=== PATIENT | male | born 1955 | race Caucasian/White ===

== ENCOUNTER 2017-06-09 16:29 | Emergency (ER) | payer MEDICAID ==
--- NOTE | 2017-06-09 18:54 | ED Physician Documentation ---
PD HPI NECK PAIN - Stated complaint Stated Complaint: VISION/NECK/COLD HANDS - Chief complaint Chief Complaint: Neuro - History obtained from History obtained from: Patient - History of Present Illness Timing - onset: How many weeks ago (few weeks of intermittent feeling of tingling/numbness in both hands at different times. Has had ongoing neck pain with ROM that is a little worse than baseline. No rash nor sores. 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 Does not get discolored hands, but just feel cool and numb. Does increase with use.) Timing - duration: Weeks Timing - details: Intermittant Location: Mid Quality: Other (numb feeling). No: Pain, Spasm Worsened by: Movement Contributing factors: No: Lifting, Twisting, Trauma Similar symptoms before: Diagnosis (neck pinched nerve) Recently seen: Not recently seen Review of Systems Constitutional: denies: Fever, Chills Skin: denies: Rash, Lesions Musculoskeletal: reports: Neck pain (chronic, recently worse). denies: Back pain Neurologic: reports: Numbness. denies: Focal weakness, Difficulty speaking, Altered mental status, Headache PD PAST MEDICAL HISTORY - Past Medical History Cardiovascular: Hypertension - Past Surgical History Past Surgical History: Yes General: Appendectomy Ortho: Other - Present Medications Home Medications: Ambulatory Orders Medication Instructions Recorded Confirmed Dexamethasone [Decadron] 4 mg PO DAILY #5 tablet 06/09/17 Methocarbamol [Robaxin] 500 mg PO Q6H PRN #25 tablet 06/09/17 Tramadol HCl 50 mg PO Q6H PRN #25 tablet 06/09/17 - Allergies Allergies/Adverse Reactions: Allergies Allergy/AdvReac Type Severity Reaction Status Date / Time No Known Drug Allergies Allergy Verified 06/09/17 16:47 - Social History Does the pt smoke?: Yes Smoking Status: Current every day smoker Does the pt drink ETOH?: Yes Does the pt have substance abuse?: Yes - Immunizations Immunizations are current?: Yes PD ED PE NORMAL - Vitals Vital signs reviewed: Yes - General General: Alert and oriented X 3, No acute distress, Well developed/nourished - HEENT HEENT: Pharynx benign - Neck Neck: Supple, no meningeal sign, No bony TTP, No adenopathy, Thyroid normal, No JVD, No bruit - Cardiac Cardiac: RRR, No murmur - Respiratory Respiratory: Clear bilaterally - Abdomen Abdomen: Soft, Non tender - Derm Derm: Normal color, Warm and dry - Extremities Extremities: Other (good pulses and cap refill in both hands/wrists. Negative TInnels at wrists. ) - Neuro Neuro: Alert and oriented X 3, No motor deficit, No sensory deficit, Normal speech Results - Vitals Vitals: Oxygen O2 Source Room air - Labs Labs: Laboratory Tests 06/09/17 06/09/17 06/09/17 19:24 19:24 19:24 WBC 9.5 RBC 5.20 Hgb 16.1 Hct 49.2 MCV 94.7 H MCH 31.0 MCHC 32.7 RDW 14.7 Plt Count 171 MPV 8.7 Neut # 6.6 Lymph # 2.0 Dare # 0.6 Eos # 0.2 Baso # 0.1 Absolute Nucleated RBC 0.00 Nucleated RBC % 0.0 ESR 1 Sodium 136 Potassium 3.8 Chloride 103 Carbon Dioxide 25 Anion Gap 8.0 BUN 12 Creatinine 0.6 Estimated GFR (MDRD) 137 Glucose 95 Calcium 8.9 Magnesium 1.9 Total Bilirubin 0.5 AST 21 ALT 18 Alkaline Phosphatase 78 Total Protein 7.0 Albumin 4.1 Globulin 2.9 Albumin/Globulin Ratio 1.4 Lipase 26 PD MEDICAL DECISION MAKING - ED course Complexity details: considered differential (has some neck pain and arms intermittently numb. Consider cervical radiculitis. But the pattern of his numbness is diffuse hands distal to wrists and not in strip up arm. He has negative Tinnels, but I still wonder if his hand numbness is more carpal tunnel like. Can try wrist splint on right wrist (the worse one) and see if it improves over the next week or so. He has good color and cap refill, pulses in wrists and fingers, so does not seem vascular, though he does have clubbing of nails suggesting COPD/ snf lung problem. ), d/w patient Departure - Departure Disposition: 01 Home, Self Care Clinical Impression: Bilateral hand numbness, Neck pain, Blurred vision, bilateral Condition: Stable Record reviewed to determine appropriate education?: Yes Instructions: ED Cervical Radiculopathy, ED Paraesthesias Follow-Up: [facility] [Provider Group] [facility]] Prescriptions: Dexamethasone [Decadron] 4 mg PO DAILY #5 tablet Methocarbamol [Robaxin] 500 mg PO Q6H PRN #25 tablet PRN Reason: Spasms Tramadol HCl 50 mg PO Q6H PRN #25 tablet PRN Reason: Pain Comments: Regarding the blurred vision, I would check with an manufacturing worker or polysomnographer initially to see if they think it is the eyes themselves. I think it is more likely to be eye pressure or refractive rather than from the neck or head. The hand numbness might be from the wrist being inflamed. Try the wrist splint on the right wrist during work and sleep for the next week or so and see if it makes it better. It may also be coming from the pinched nerve in the neck and you are having the neck pain anyway so use the Decadron for inflammation and Robaxin for muscle spasms and stiffness and add Tylenol or hydrocodone if needed for pains. Obtain a local primary care for follow-up. I give couple of clinic names as possibilities. Discharge Date/Time: 06/09/17 21:01
[2017-06-09] MEDS ORDERED: traMADol 50 MG TABLET PO STA (19:13)
[2017-06-09] MEDS ORDERED: DEXAMETHASONE 10 MG/ML VIAL PO STA (19:13)
[2017-06-09] MEDS ORDERED: CHERRY SYRUP 10 ML UDC PO ONE (19:30)
[2017-06-09 19:31] LABS: BASOPHILS # (AUTO) 0.1 10^3/uL (0.0-0.1); BASOPHILS % (AUTO) 0.7 %; EOSINOPHILS # (AUTO) 0.2 10^3/uL (0.0-0.7); EOSINOPHILS % (AUTO) 2.5 %; HGB - HEMOGLOBIN 16.1 g/dL (14.0-18.0); MEAN CORPUSCULAR HGB CONC 32.7 g/dL (32.0-36.0); MEAN CORPUSCULAR VOLUME 94.7 fL (80.0-94.0); MEAN PLATELET VOLUME 8.7 fL (7.4-11.4); MONOCYTES # (AUTO) 0.6 10^3/uL (0.0-1.0); MONOCYTES % (AUTO) 6.8 %; NEUTROPHILS # (AUTO) 6.6 10^3/uL (1.5-6.6); PLT - PLATELET COUNT 171 10^3/uL (130-450); RED CELL DISTRIBUTION WIDTH 14.7 % (12.0-15.0); WHITE BLOOD COUNT 9.5 x10^3/uL (4.8-10.8)
[2017-06-09 19:44] LABS: ALBUMIN 4.1 g/dL (3.2-5.5); ALBUMIN/GLOBULIN RATIO 1.4 (1.0-2.2); BILIRUBIN,TOTAL 0.5 mg/dL (0.2-1.0); CALCIUM 8.9 mg/dL (8.5-10.3); CREATININE 0.6 mg/dL (0.6-1.2); MAGNESIUM 1.9 mg/dL (1.7-2.8)
[2017-06-09 20:58] VITALS: BP 145/92
== END 2017-06-09 21:01 | disposition home or self-care (01) ==
LOC: ED 16:29
DX: R20.0 Anesthesia of skin (principal); M54.2 Cervicalgia; H53.8 Other visual disturbances; I10 Essential (primary) hypertension; F17.200 Nicotine dependence, unspecified, uncomplicated
CPT/HCPCS: 36415; 80053; 83690; 83735; 85025; 85651; 99283; A9270

== ENCOUNTER 2018-02-09 19:57 | Emergency (ER) | payer MEDICAID ==
[2018-02-09 20:05] VITALS: BP 149/93
--- NOTE | 2018-02-09 20:20 | ED Physician Documentation ---
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 He has some soa but no fever or chills. Review of Systems Constitutional: reports: Fatigue. denies: Fever, Chills Eyes: denies: Decreased vision Ears: denies: Ear pain Nose: reports: Rhinorrhea / runny nose (resolved), Congestion (resolved) Throat: denies: Sore throat Cardiac: reports: Chest pain / pressure. denies: Palpitations, Pedal edema, Calf pain Respiratory: reports: Dyspnea, Cough GI: denies: Abdominal Pain, Nausea, Vomiting : denies: Dysuria, Frequency Skin: denies: Rash Musculoskeletal: denies: Neck pain, Back pain, Extremity pain PD PAST MEDICAL HISTORY - Past Medical History Cardiovascular: Hypertension - Past Surgical History Past Surgical History: Yes General: Appendectomy Ortho: Other - Present Medications Home Medications: Ambulatory Orders Medication Instructions Recorded Confirmed Dexamethasone [Decadron] 4 mg PO DAILY #5 tablet 06/09/17 Methocarbamol [Robaxin] 500 mg PO Q6H PRN #25 tablet 06/09/17 Tramadol HCl 50 mg PO Q6H PRN #25 tablet 06/09/17 Azithromycin [Zithromax] 250 mg PO DAILY #6 tablet 02/09/18 - Allergies Allergies/Adverse Reactions: Allergies Allergy/AdvReac Type Severity Reaction Status Date / Time No Known Drug Allergies Allergy Verified 02/09/18 20:05 - Social History Does the pt smoke?: Yes Smoking Status: Current every day smoker Does the pt drink ETOH?: Yes Does the pt have substance abuse?: Yes - Immunizations Immunizations are current?: Yes PD ED PE NORMAL - Vitals Vital signs reviewed: Yes (hypertensive) - General General: Alert and oriented X 3, Well developed/nourished - HEENT HEENT: Atraumatic, PERRL, EOMI, Ears normal, Other (dry mucous membranes ) - Neck Neck: Supple, no meningeal sign, No bony TTP - Cardiac Cardiac: RRR, No murmur - Respiratory Respiratory: No respiratory distress, Other (low pitched rhonchi in right base ) - Abdomen Abdomen: Soft, Non tender - Back Back: No CVA TTP, No spinal TTP - Derm Derm: Normal color, Warm and dry, No rash - Extremities Extremities: No deformity, No edema - Neuro Neuro: Alert and oriented X 3, 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 On lateral view increased parenchymal density either in the right middle lobe, lingula not well seen on frontal view. 2 COPD), EMP read indepedently, See rad report PD MEDICAL DECISION MAKING - ED course Complexity details: reviewed old records, reviewed results, re-evaluated patient, considered differential, d/w patient ED course: 62 y/o male with cough and right sided chest pain has rhonchi and infiltrate in the right base. He is administered Rocephin 1gm IM and we will place him on some zithromax for community acquired pneumonia. The patient has pleuritic type chest pain and he is administered dexamethasone 10 mg orally for this indication. Departure - Departure Disposition: 01 Home, Self Care Clinical Impression: Pneumonia Qualifiers: Pneumonia type: due to unspecified organism Laterality: right Lung location: lower lobe of lung Qualified Code(s): J18.1 - Lobar pneumonia, unspecified organism Condition: Stable Instructions: ED Pneumonia Adult Follow-Up: Buzz Laurent MD [Primary Care Provider] - Prescriptions: Azithromycin [Zithromax] 250 mg PO DAILY #6 tablet
[2018-02-09] MEDS ORDERED: cefTRIAXone 1 GM VIAL IM STA (20:33)
[2018-02-09] MEDS ORDERED: LIDOCAINE 1% 2 ML VIAL SUBQ ONE (20:33)
--- NOTE | 2018-02-09 20:47 | XRAY Report ---
Reason: rhonchi right base/pain cough Procedure Date: 02/09/2018 Accession Number: [id number] / [id number] Procedure: XR - Chest 2 View X-Ray CPT Code: 93609 FULL RESULT: EXAM: CHEST RADIOGRAPHY EXAM DATE: 02/09/2018 08:29 PM. CLINICAL HISTORY: Rhonchi right base/pain cough. COMPARISON: None. TECHNIQUE: 2 views. FINDINGS: Lungs/Pleura: Lateral view there appears to be increased parenchymal density in either right middle lobe or lingula projected over heart No pleural effusion. No pneumothorax. Hyperlucent, hyperinflated with flattened hemidiaphragms. Biapical pleural thickening. Right apical scarring. Mediastinum: Heart and mediastinal contours are unremarkable. Other: None. IMPRESSION: 1. On lateral view increased parenchymal density either in right middle lobe, lingula not well seen on frontal view. 2. COPD RADIA
[2018-02-09] MEDS ORDERED: DEXAMETHASONE 10 MG/ML VIAL PO STA (20:50)
== END 2018-02-09 21:00 | disposition home or self-care (01) ==
LOC: ED 19:57
DX: J18.1 Lobar pneumonia, unspecified organism (principal); I10 Essential (primary) hypertension; F17.200 Nicotine dependence, unspecified, uncomplicated
CPT/HCPCS: 71046; 96372; 99283; 99284

== ENCOUNTER 2018-02-10 09:28 | Emergency (ER) | payer MEDICAID ==
[2018-02-10 09:33] VITALS: BP 153/85
[2018-02-10] MEDS ORDERED: AZITHROMYCIN 250 MG TABLET PO STA (09:41)
[2018-02-10] MEDS ORDERED: LIDOCAINE PATCH 5% TOP STA (09:41)
--- NOTE | 2018-02-10 09:44 | ED Physician Documentation ---
History of Present Illness - Stated complaint Stated Complaint: MED REFILL - Chief complaint Chief Complaint: General - Additonal information Additional information: hx from pt and EMR 62 male seen yesterday for cough and R sided CP dx CAP txed with zmax only pharmacy open today () is [facility] and they do not take his insurance so back to ER for a dose of zmax for today and tomorrow he can go to his usual pharmacy Review of Systems Constitutional: denies: Fever Cardiac: reports: Chest pain / pressure Respiratory: reports: Dyspnea, Cough Musculoskeletal: denies: Extremity swelling PD PAST MEDICAL HISTORY - Past Medical History Past Medical History: Yes Cardiovascular: Hypertension Respiratory: Pneumonia - Past Surgical History Past Surgical History: Yes General: Appendectomy Ortho: Other - Present Medications Home Medications: Ambulatory Orders Medication Instructions Recorded Confirmed Dexamethasone [Decadron] 4 mg PO DAILY #5 tablet 06/09/17 Methocarbamol [Robaxin] 500 mg PO Q6H PRN #25 tablet 06/09/17 Tramadol HCl 50 mg PO Q6H PRN #25 tablet 06/09/17 Azithromycin [Zithromax] 250 mg PO DAILY #6 tablet 02/09/18 - Allergies Allergies/Adverse Reactions: Allergies Allergy/AdvReac Type Severity Reaction Status Date / Time No Known Drug Allergies Allergy Verified 02/10/18 09:33 - Social History Does the pt smoke?: Yes Smoking Status: Current every day smoker Does the pt drink ETOH?: Yes Does the pt have substance abuse?: Yes - Immunizations Immunizations are current?: Yes PD ED PE NORMAL - Vitals Vital signs reviewed: Yes - Cardiac Cardiac: RRR - Respiratory Respiratory: Other (faint ronchi cayden) - Derm Derm: Normal color - Extremities Extremities: No edema, No calf tenderness / cord Results - Vitals Vitals: Vital Signs - 24 hr 02/10/18 09:32 Temperature 36.1 C L Heart Rate 89 Respiratory 16 Rate Blood Pressure 153/85 H O2 Saturation 98 Oxygen O2 Source Room air Departure - Departure Disposition: 01 Home, Self Care Clinical Impression: Pneumonia Qualifiers: Pneumonia type: due to unspecified organism Laterality: right Lung location: middle lobe of lung Qualified Code(s): J18.1 - Lobar pneumonia, unspecified organism Condition: Good Instructions: ED Pneumonia Adult Follow-Up: Buzz Laurent MD [Primary Care Provider] - Comments: Get your prescriptions filled tomorrow when your pharmacy is open. Take the lidocaine patch off before you go to bed tonight May take tylenol for pain as well. Return if worse over the holiday weekend
== END 2018-02-10 09:51 | disposition home or self-care (01) ==
LOC: ED 09:28
DX: J18.1 Lobar pneumonia, unspecified organism (principal); I10 Essential (primary) hypertension; F17.200 Nicotine dependence, unspecified, uncomplicated
CPT/HCPCS: 99282; 99283; A9270

== ENCOUNTER 2018-02-11 08:02 | Outpatient (CLI) | payer MEDICAID ==
[2018-02-11 13:25] LABS: ALBUMIN/GLOBULIN RATIO 1.4 (1.0-2.2); ALKALINE PHOSPHATASE 93 IU/L (42-121); ALT ALANINE AMINOTRANSFERASE 32 IU/L (10-60); AST ASPARTATE AMINOTRANSFERASE 32 IU/L (10-42); BILIRUBIN,TOTAL 0.6 mg/dL (0.2-1.0); BUN - BLOOD UREA NITROGEN 14 mg/dL (6-20); CALCIUM 8.7 mg/dL (8.5-10.3); CARBON DIOXIDE - CO2 27 mmol/L (21-32); CHLORIDE 104 mmol/L (101-111); CHOL/HDL RATIO 4.7 (<5.0); CHOLESTEROL 193 mg/dL; CREATININE 0.8 mg/dL (0.6-1.2); GFR - MDRD 98 (>89); GLUCOSE 85 mg/dL (70-100); HDL CHOLESTEROL 41 mg/dL; LDL CHOLESTEROL,CALCULATED 130 mg/dL; LDL/HDL RATIO 3.2 (<3.6); SODIUM 139 mmol/L (135-145); TOTAL PROTEIN 6.8 g/dL (6.7-8.2); VLDL CHOLESTEROL 22 mg/dL
[2018-02-11 13:40] LABS: BASOPHILS % (AUTO) 0.4 %; EOSINOPHILS # (AUTO) 0.1 10^3/uL (0.0-0.7); EOSINOPHILS % (AUTO) 1.1 %; HGB - HEMOGLOBIN 15.3 g/dL (14.0-18.0); LYMPHOCYTES # (AUTO) 2.1 10^3/uL (1.5-3.5); MEAN CORPUSCULAR HEMOGLOBIN 31.1 pg (27.0-31.0); MEAN CORPUSCULAR HGB CONC 34.4 g/dL (32.0-36.0); MEAN CORPUSCULAR VOLUME 90.4 fL (80.0-94.0); MEAN PLATELET VOLUME 10.7 fL (7.4-11.4); MONOCYTES # (AUTO) 0.9 10^3/uL (0.0-1.0); MONOCYTES % (AUTO) 7.8 %; NEUTROPHILS % (AUTO) 71.7 %; PLT - PLATELET COUNT 212 10^3/uL (130-450); RED BLOOD COUNT 4.93 10^6/uL (4.70-6.10); WHITE BLOOD COUNT 11.1 x10^3/uL (4.8-10.8)
== END 2018-02-11 08:03 | disposition home or self-care (01) ==
LOC: LAB.N 08:02
PROVIDERS: ATTEND Physician Assistant Medical
DX: Z00.00 Encounter for general adult medical examination without abnormal findings (principal)
CPT/HCPCS: 36415; 80053; 80061; 83721; 84153; 84443; 85025

== ENCOUNTER 2018-07-12 09:20 | Day surgery (SDC) | payer MEDICAID ==
[2018-07-12] MEDS ORDERED: LACTATED RINGERS 1,000 ML IV ONE (09:29)
[2018-07-12] MEDS ORDERED: MIDAZOLAM 2 MG/2 ML VIAL IVP ONE (10:48)
[2018-07-12] MEDS ORDERED: fentaNYL 250 MCG/5 ML VIAL IVP ONE (10:48)
[2018-07-12 11:23] VITALS: BP 110/65
--- NOTE | 2018-07-12 12:50 | OPERATIVE REPORT ---
DATE OF SERVICE: 07/12/2018 Physician: Buzz Vicente MD SURGEON: Buzz Vicente MD. PREOPERATIVE DIAGNOSIS: Screening. POSTOPERATIVE DIAGNOSIS: Normal colonoscopy to cecum. PROCEDURE: Screening colonoscopy. INDICATIONS: The patient is a 59-year-old man presenting for a screening colonoscopy. DESCRIPTION OF PROCEDURE: Risks and benefits were explained to the patient. He agreed to the procedure. He was taken to the operating room, given sedation. A timeout was performed, and everyone in the room agreed with the procedure. We inserted a well-lubricated colonoscope in the rectal vault and advanced it to the cecum without difficulty. Prep was excellent except at the cecum itself, which had some adherent enteric material to parts of the wall, and was difficult to clear; however, no large abnormalities were seen. The colon was then insufflated and the scope was slowly withdrawn. Other than a small portion of the cecum, all other surfaces of the colon were visualized well. No abnormalities were seen throughout its entirety. The scope was then completely withdrawn and the procedure terminated. SPECIMENS: None. COMPLICATIONS: None. PLAN: For the patient to go home later today, with repeat colonoscopy in 10 years. TD: 07/12/2018 11:00 CORTNEY
== END 2018-07-12 09:21 | disposition home or self-care (01) ==
LOC: SDS 09:20
PROVIDERS: ATTEND Surgery
PROC: 0DJD8ZZ Inspection of Lower Intestinal Tract, Via Natural or Artificial Opening Endoscopic (ICD-10-PCS; principal; 2018-07-12 10:45)
DX: Z12.11 Encounter for screening for malignant neoplasm of colon (principal); F17.200 Nicotine dependence, unspecified, uncomplicated
CPT/HCPCS: 45378; J3010; J7120

== ENCOUNTER 2019-10-02 07:17 | Emergency (ER) | payer MEDICAID ==
--- NOTE | 2019-10-02 07:42 | ED Physician Documentation ---
PD HPI LOWER EXT INJURY - Stated complaint Stated Complaint: LT FOOT PX - Chief complaint Chief Complaint: Ext Problem - History obtained from History obtained from: Patient - History of Present Illness PD HPI LOW EXT INJURY LOCATION: Left, Ankle, Foot Type of injury: No: Fall, Twist Where injury occurred: Other (has noted the symptoms more often at work, where he does walking. His tolerance for walking is only now about 15-20 minutes before hurting too much to continue.) Timing - onset: How many months ago (onset 3 months ago of pain in left foot and ankle with walking and noting cool feeling and numbness to top of foot often (when sleeping, walking, or if leg down as in sitting). It has gotten progressively worse and now is very painful at night and with walking, limiting activity to only 15-20 mins.) Timing - duration: Months (3) Timing - details: Gradual onset, Still present Improved by: Rest Worsened by: Other (walking and also noted when sleeping or if foot in downward position (sitting at chair for example).) Associated symptoms: Tingling (top of foot and toes), Discolored (he says it gets pale coloring with walking. Notes some swelling when walking a lot during a day.). No: Weakness, Numbness, Swelling Contributing factors: No: Anticoagulated, Prior ortho surgery Similar symptoms before: Has not had sx before Recently seen: Not recently seen (he has not had regular exam appt for years.) Review of Systems Constitutional: denies: Fever, Chills Nose: denies: Rhinorrhea / runny nose, Congestion Throat: denies: Sore throat Respiratory: denies: Cough GI: denies: Nausea, Vomiting, Diarrhea Skin: denies: Rash, Lesions Neurologic: reports: Numbness. denies: Focal weakness, Difficulty speaking, Near syncope PD PAST MEDICAL HISTORY - Past Medical History Cardiovascular: Hypertension, Other (no known PVD) Respiratory: Pneumonia Endocrine/Autoimmune: None GI: None : None HEENT: None Psych: None Musculoskeletal: None Derm: None - Past Surgical History Past Surgical History: Yes General: Appendectomy, Colonoscopy Ortho: Other - Present Medications Home Medications: Ambulatory Orders Medication Instructions Recorded Confirmed Aspirin [Aspirin EC] 162 mg PO DAILY #100 tablet. 10/02/19 Hydrocodone/Acetaminophen [Walford 1 each PO Q6H PRN #20 tablet 10/02/19 5-325 Tablet] - Allergies Allergies/Adverse Reactions: Allergies Allergy/AdvReac Type Severity Reaction Status Date / Time No Known Drug Allergies Allergy Verified 10/02/19 07:20 - Social History Does the pt smoke?: Yes Smoking Status: Current every day smoker Does the pt drink ETOH?: Yes Does the pt have substance abuse?: Yes - Immunizations Immunizations are current?: Yes PD ED PE NORMAL - Vitals Vital signs reviewed: Yes - General General: Alert and oriented X 3, No acute distress, Well developed/nourished - Neck Neck: Supple, no meningeal sign, No adenopathy - Cardiac Cardiac: RRR, No murmur - Respiratory Respiratory: Clear bilaterally - Abdomen Abdomen: Soft, Non tender - Back Back: No spinal TTP - Derm Derm: Warm and dry, No rash. No: Normal color (somewhat diminished cap refill in left toes. No edema. Unable to palpate DP pulse on left; it is present on the right. ) - Extremities Extremities: No edema, No calf tenderness / cord - Neuro Neuro: Alert and oriented X 3, No motor deficit, Normal speech, Other (decreased sensation to touch just on top of left foot. Normal to bottom and sides. ) Results - Vitals Vitals: Vital Signs - 24 hr 10/02/19 10/02/19 10/02/19 07:21 07:25 09:25 Temperature 36.6 C Heart Rate 77 75 70 Respiratory 18 16 16 Rate Blood Pressure 153/80 H 145/78 H 136/75 H O2 Saturation 100 100 99 10/02/19 11:29 Temperature 36.8 C Heart Rate 70 Respiratory 16 Rate Blood Pressure 114/78 O2 Saturation 98 Oxygen O2 Source Room air - Labs Labs: Laboratory Tests 10/02/19 10/02/19 10/02/19 08:30 08:30 08:30 WBC 8.3 RBC 5.76 Hgb 17.6 Hct 52.1 H MCV 90.5 MCH 30.6 MCHC 33.8 RDW 13.6 Plt Count 181 MPV 11.5 H Neut # (Auto) 6.2 Lymph # (Auto) 1.3 L [place] # (Auto) 0.6 Eos # (Auto) 0.2 Baso # (Auto) 0.0 Absolute Nucleated RBC 0.00 Nucleated RBC % 0.0 ESR 1 Sodium 136 Potassium 3.8 Chloride 105 Carbon Dioxide 24 Anion Gap 7.0 BUN 14 Creatinine 0.7 Estimated GFR (MDRD) 114 Glucose 105 H Calcium 9.0 Total Bilirubin 0.6 AST 17 ALT 22 Alkaline Phosphatase 105 Total Protein 6.7 Albumin 3.9 Globulin 2.8 Albumin/Globulin Ratio 1.4 Lipase 35 - Rads (name of study) duplex arteries left leg Radiology: Prelim report reviewed (occlusion superficial femoral artery with minimal collateral reconstitution; monophasic flow. 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 ) ED course: The patient actually got cell phone message from the Vascular Surgery office while still in ER, to arrange an appt in next few days. Departure - Departure Disposition: 01 Home, Self Care Clinical Impression: Foot pain, left, Superficial femoral artery occlusion, Left leg claudication Condition: Stable Record reviewed to determine appropriate education?: Yes Instructions: ED PVD Prescriptions: Aspirin [Aspirin EC] 162 mg PO DAILY #100 tablet. Hydrocodone/Acetaminophen [Walford 5-325 Tablet] 1 each PO Q6H PRN #20 tablet PRN Reason: Pain Comments: You do have a blockage of blood flow going to the lower leg causing your symptoms. I talked with the vascular surgeon in [facility] which is the best group to go to in the area. They will call you to set up an appointment in the next day or 2. If you have not heard from them, then call their office to set up an appointment in the next couple of days. Meanwhile he suggest using 1 or 2 baby aspirin's daily. To that add Tylenol or hydrocodone if needed for pain. Activity as tolerated based on symptoms. Follow-up soon with their office to discuss ways to them restore the or improve the blood flow to the leg to reduce symptoms Discharge Date/Time: 10/02/19 11:56
[2019-10-02 08:42] LABS: BASOPHILS % (AUTO) 0.5 %; EOSINOPHILS # (AUTO) 0.2 10^3/uL (0.0-0.7); EOSINOPHILS % (AUTO) 2.2 %; HGB - HEMOGLOBIN 17.6 g/dL (14.0-18.0); LYMPHOCYTES # (AUTO) 1.3 10^3/uL (1.5-3.5); LYMPHOCYTES % (AUTO) 15.1 %; MEAN CORPUSCULAR HEMOGLOBIN 30.6 pg (27.0-31.0); MEAN CORPUSCULAR HGB CONC 33.8 g/dL (32.0-36.0); MEAN CORPUSCULAR VOLUME 90.5 fL (80.0-94.0); MEAN PLATELET VOLUME 11.5 fL (7.4-11.4); MONOCYTES # (AUTO) 0.6 10^3/uL (0.0-1.0); NEUTROPHILS # (AUTO) 6.2 10^3/uL (1.5-6.6); NEUTROPHILS % (AUTO) 74.7 %; PLT - PLATELET COUNT 181 10^3/uL (130-450); RED BLOOD COUNT 5.76 10^6/uL (4.70-6.10); RED CELL DISTRIBUTION WIDTH 13.6 % (12.0-15.0); WHITE BLOOD COUNT 8.3 x10^3/uL (4.8-10.8)
[2019-10-02 08:57] LABS: ALBUMIN 3.9 g/dL (3.2-5.5); ALBUMIN/GLOBULIN RATIO 1.4 (1.0-2.2); BILIRUBIN,TOTAL 0.6 mg/dL (0.2-1.0); CREATININE 0.7 mg/dL (0.6-1.2); TOTAL PROTEIN 6.7 g/dL (6.7-8.2)
--- NOTE | 2019-10-02 09:06 | XRAY Report ---
PROCEDURE: Foot 3 View LT INDICATIONS: left foot pain 1 month; no injury noted TECHNIQUE: 3 views of the foot were acquired. COMPARISON: None FINDINGS: Bones: No fractures or dislocations. No suspicious bony lesions. Large plantar calcaneal bone spur. Soft tissues: No tibiotalar joint effusion. Achilles tendon appears normal. IMPRESSION: Large plantar calcaneal bone spur. Reviewed by: Heidy Morgan MD, PhD on 10/02/2019 9:04 AM PDT Approved by: Heidy Morgan MD, PhD on 10/02/2019 9:04 AM PDT Station ID: [id number]
--- NOTE | 2019-10-02 10:31 | Ultrasound Report ---
PROCEDURE: Duplex Lwr Ext Arterial LT INDICATIONS: foot blanching/pain with walking; numb at rest TECHNIQUE: Color and pulse Doppler interrogation was performed of the left lower extremity arterial system, with image documentation. COMPARISON: None FINDINGS: Common femoral artery: 115 cm/sec, with triphasic flow. Deep femoral artery: 99 cm/sec, with triphasic flow. Proximal superficial femoral artery: 36 cm/sec, with triphasic flow. Mid superficial femoral artery: Occluded Distal superficial femoral artery: 20 cm/sec, with monophasic flow. Popliteal artery: 16 cm/sec, with monophasic flow. Posterior tibial artery: 29 cm/sec, with monophasic flow. Anterior tibial artery/dorsalis pedis: 15/9 cm/sec, with monophasic flow. Hook-scale imaging description: Occlusion with small collaterals. IMPRESSION: There is occlusion within the mid superficial femoral artery with diminutive flow and monophasic wave forms distal to the occlusion. Small areas of collaterals are noted. Reviewed by: Dea Gardner MD on 10/02/2019 10:30 AM PDT Approved by: Dea Gardner MD on 10/02/2019 10:30 AM PDT Station ID: [id number]
[2019-10-02 11:29] VITALS: BP 114/78
[2019-10-02] MEDS ORDERED: ACETAMINOPHEN 325 MG TABLET PO STA (11:36)
[2019-10-02] MEDS ORDERED: ASPIRIN CHEW 81 MG TABLET PO STA (11:36)
[2019-10-02] MEDS ORDERED: HYDROcod/ACETAM 5/325 MG TABLET PO STA (11:37)
== END 2019-10-02 11:56 | disposition home or self-care (01) ==
LOC: ED 07:17
DX: I74.3 Embolism and thrombosis of arteries of the lower extremities (principal); I73.9 Peripheral vascular disease, unspecified; M77.32 Calcaneal spur, left foot; I10 Essential (primary) hypertension; F17.200 Nicotine dependence, unspecified, uncomplicated
CPT/HCPCS: 36415; 73630; 80053; 83690; 85025; 85651; 93926; 99284; A9270

== ENCOUNTER 2020-01-23 10:30 | Outpatient (CLI) | payer MEDICAID | END 2020-01-23 23:59 | disposition home or self-care (01) | LOC: LAB.R 10:30 | PROVIDERS: ATTEND Family Medicine | DX: L03.314 Cellulitis of groin (principal) | CPT/HCPCS: 87070; 87077; 87181; 87205 ==

== ENCOUNTER 2020-03-08 08:00 | Emergency (ER) | payer MEDICARE, MEDICAID ==
[2020-03-08] MEDS ORDERED: MUPIROCIN 2% OINT 1 GM TOP STA (08:40)
[2020-03-08] MEDS ORDERED: SULFAMETH/TRIMETH DS 800/160 MG TABLET PO STA (08:40)
[2020-03-08 08:49] LABS: BASOPHILS % (AUTO) 0.5 %; EOSINOPHILS # (AUTO) 0.2 10^3/uL (0.0-0.7); EOSINOPHILS % (AUTO) 2.6 %; HGB - HEMOGLOBIN 17.7 g/dL (14.0-18.0); LYMPHOCYTES # (AUTO) 1.7 10^3/uL (1.5-3.5); LYMPHOCYTES % (AUTO) 23.2 %; MEAN CORPUSCULAR HEMOGLOBIN 30.5 pg (27.0-31.0); MEAN CORPUSCULAR HGB CONC 33.4 g/dL (32.0-36.0); MEAN CORPUSCULAR VOLUME 91.4 fL (80.0-94.0); MEAN PLATELET VOLUME 12.1 fL (7.4-11.4); MONOCYTES # (AUTO) 0.5 10^3/uL (0.0-1.0); MONOCYTES % (AUTO) 6.9 %; NEUTROPHILS # (AUTO) 4.9 10^3/uL (1.5-6.6); NEUTROPHILS % (AUTO) 66.5 %; PLT - PLATELET COUNT 195 10^3/uL (130-450); RED CELL DISTRIBUTION WIDTH 13.7 % (12.0-15.0); WHITE BLOOD COUNT 7.4 x10^3/uL (4.8-10.8)
[2020-03-08 09:03] LABS: BUN - BLOOD UREA NITROGEN 10 mg/dL (6-20); CALCIUM 9.3 mg/dL (8.5-10.3); CARBON DIOXIDE - CO2 24 mmol/L (21-32); CHLORIDE 105 mmol/L (101-111); CREATININE 0.9 mg/dL (0.6-1.2); GLUCOSE 115 mg/dL (70-100); SODIUM 139 mmol/L (135-145)
[2020-03-08 09:13] LABS: CRP - C-REACTIVE PROTEIN < 1.0 mg/dL (0-1.0)
[2020-03-08 10:38] VITALS: BP 143/82
--- NOTE | 2020-03-08 10:41 | ED Physician Documentation ---
PD HPI LOWER EXT INJURY - Stated complaint Stated Complaint: SURGERY COMPLICATION - Chief complaint Chief Complaint: Ext Problem - History obtained from History obtained from: Patient - History of Present Illness PD HPI LOW EXT INJURY LOCATION: Left, Other (inguinal area) Type of injury: Other (had fem/pop bypass in December and was healing okay. Noted redness and some drainage from skin the past week left inguinal area. No fevers nor general symptoms.). 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 No: Weakness, Numbness Similar symptoms before: Has not had sx before Recently seen: Not recently seen Review of Systems Constitutional: denies: Fever, Chills GI: denies: Nausea, Vomiting Neurologic: denies: Generalized weakness, Near syncope PD PAST MEDICAL HISTORY - Past Medical History Past Medical History: Yes Cardiovascular: Hypertension, Other Respiratory: Pneumonia Endocrine/Autoimmune: None GI: None : None HEENT: None Psych: None Musculoskeletal: None Derm: None - Past Surgical History Past Surgical History: Yes General: Appendectomy, Colonoscopy Ortho: Other - Present Medications Home Medications: Ambulatory Orders Medication Instructions Recorded Confirmed Mupirocin Calcium [Mupirocin] 1 applic TP TID #15 cream..g. 03/08/20 Naproxen Sodium [Aleve] 220 mg PO 03/08/20 Sulfamethox/Trimeth 800/160 1 each PO BID #14 tablet 03/08/20 [Bactrim Ds 800/160] - Allergies Allergies/Adverse Reactions: Allergies Allergy/AdvReac Type Severity Reaction Status Date / Time No Known Drug Allergies Allergy Verified 03/08/20 08:20 - Social History Does the pt smoke?: Yes Smoking Status: Current every day smoker Does the pt drink ETOH?: Yes Does the pt have substance abuse?: Yes - Immunizations Immunizations are current?: Yes PD ED PE NORMAL - Vitals Vital signs reviewed: Yes - General General: Alert and oriented X 3, No acute distress, Well developed/nourished - Cardiac Cardiac: RRR, No murmur - Respiratory Respiratory: Clear bilaterally - Abdomen Abdomen: Soft, Non tender - Derm Derm: Normal color, Warm and dry, Other (The left inguinal area shows a prior scar that has mild redness and tenderness along the line of it and a small 2 mm hole at the lower and with faint drainage. A culturette is obtained from fresh fluid. There is no fluctuance felt.) - Extremities Extremities: No edema, No calf tenderness / cord, Other (Palpable posterior tibial pulse. Faint dorsalis pedis and can Doppler it. He does have normal symmetric color and capillary refill in the toes and feet bilaterally.) - Neuro Neuro: Alert and oriented X 3, No motor deficit, No sensory deficit, Normal speech Results - Vitals Vitals: Vital Signs - 24 hr 03/08/20 03/08/20 03/08/20 08:17 09:11 10:38 Temperature 36.1 C L 36.3 C L Heart Rate 74 71 68 Respiratory 18 16 18 Rate Blood Pressure 141/112 H 125/69 143/82 H O2 Saturation 100 96 97 Oxygen O2 Source Room air - Labs Labs: Laboratory Tests 03/08/20 03/08/20 08:15 08:15 WBC 7.4 RBC 5.80 Hgb 17.7 Hct 53.0 H MCV 91.4 MCH 30.5 MCHC 33.4 RDW 13.7 Plt Count 195 MPV 12.1 H Neut # (Auto) 4.9 Lymph # (Auto) 1.7 [place] # (Auto) 0.5 Eos # (Auto) 0.2 Baso # (Auto) 0.0 Absolute Nucleated RBC 0.00 Nucleated RBC % 0.0 Sodium 139 Potassium 4.0 Chloride 105 Carbon Dioxide 24 Anion Gap 10.0 BUN 10 Creatinine 0.9 Estimated GFR (MDRD) 85 L Glucose 115 H Calcium 9.3 C-Reactive Protein < 1.0 PD MEDICAL DECISION MAKING - ED course Complexity details: reviewed results (Duplex artery showed normal flow through the bypass graft. No fluid collection under the skin. Small tract consistent with subcutaneous infection that is draining. No signs of involvement around the bypass vessel.), considered differential (Seems to have good color and cap refill in the lower extremity. Appears likely skin infection in the scar for the bypass. We will ultrasound to evaluate patency of the graft and any fluid around it. Otherwise treat as local skin infection.), d/w patient ED course: He has been working on the [employer] locally with repetitive bending and lifting. Presume he has some irritation at the scar site which allowed for some local infection to develop. Departure - Departure Disposition: 01 Home, Self Care Clinical Impression: Surgical site infection Condition: Stable Record reviewed to determine appropriate education?: Yes Instructions: ED Staph Infec Abx Tx Only Prescriptions: Sulfamethox/Trimeth 800/160 [Bactrim Ds 800/160] 1 each PO BID #14 tablet Mupirocin Calcium [Mupirocin] 1 applic TP TID #15 cream..g. Comments: Your bypass graft has normal flow. There is no fluid collection under the skin to suggest a retained abscess. The infection therefore seems to be draining adequately so we can treat it with just oral antibiotics as well as topical and allow the infection to clear and see if the wound heals back up. There is no signs of infection systemically or around the graft. It appears to be just under the skin. Bactrim antibiotic orally twice daily for a week. Mupirocin topical antibiotic 2-3 times daily to the site. Keep a dressing over the area to absorb drainage and protect the open sore. Recheck if not improved well over the next several days and resolved and healed in by a week. Return if general symptoms such as fever nausea increased swelling or redness at the site. Discharge Date/Time: 03/08/20 10:47
--- NOTE | 2020-03-08 11:17 | Ultrasound Report ---
PROCEDURE: Duplex Lwr Ext Arterial LT INDICATIONS: Status post femoropopliteal bypass in December; now with new inguinal drainage TECHNIQUE: Color and pulse Doppler interrogation was performed of the left lower extremity arterial system, with image documentation. COMPARISON: 10/02/2019 FINDINGS: Proximal to the anastomosis flow velocity is measured at 174 cm/s with monophasic waveform. Within the graft velocities range from 102 to 120 cm/s with triphasic waveforms. Distal to the anastomosis the flow velocity is 58 cm/s with triphasic waveform. There is a small simultaneous fluid collection with an open tract near the patient's inguinal incisio n. IMPRESSION: Widely patent bypass graft. Small fluid collection with a draining sinus tract adjacent proximally to the patient's left inguinal region incision. Reviewed by: Clyde Wilson MD on 03/08/2020 10:16 AM [facility] Approved by: Clyde Wilson MD on 03/08/2020 10:16 AM [facility] Station ID: [id number]
== END 2020-03-08 10:47 | disposition home or self-care (01) ==
LOC: ED 08:00
DX: T81.41XA Infection following a procedure, superficial incisional surgical site, initial encounter (principal); Y83.8 Other surgical procedures as the cause of abnormal reaction of the patient, or of later complication, without mention of misadventure at the time of the procedure; I10 Essential (primary) hypertension; F17.200 Nicotine dependence, unspecified, uncomplicated
CPT/HCPCS: 36415; 80048; 85025; 86140; 87070; 87077; 87181; 87205; 93926; 99284; A9270